=== PATIENT | female | born 1940 ===

== ENCOUNTER 2016-09-27 06:12 | Day surgery (SDC) | payer MEDICARE ==
[2016-09-21 09:28] VITALS: BMI 42.0
[2016-09-27] MEDS ORDERED: Lactated Ringer's 1,000 ML IV ONE ×2 (07:07→15:05)
[2016-09-27] MEDS ORDERED: Lidocaine 1% Inj (20ml) ONE (07:59)
[2016-09-27] MEDS ORDERED: Bacitracin 500 Units/gm Oint Foilpak UD ONE (08:00)
--- NOTE | 2016-09-27 10:06 | CP.SDSHP ---
Same Day Surgery H & P - History Proposed Procedure: R breast lumpectomy Pre-Op Diagnosis: R breast papillary carcinoma - Previous Medical/Surgical History Cardiac: Hypertension Previous Surgical History: Cholecystectomy, L knee replacement - Allergies Allergies: Allergies No Known Allergies Allergy (Unverified 09/27/16 06:25) - Physical Exam General Appearance: NAD Vital Signs: Vital Signs 09/27/16 09/27/16 09/27/16 06:50 08:03 09:10 Temperature 98.1 F 98.6 F Pulse Rate 71 80 76 Respiratory 20 18 18 Rate Blood Pressure 147/74 146/76 142/74 Mental Status: Alert & Oriented x3 Neuro: WNL Heart: WNL Lungs: WNL GI: WNL - {Optional Preform as Required} Breast: Other (needle loc, dressing C/D/I) Abdomen: WNL Integument: WNL ENT: WNL - Impression Impression: R breast papillary CA Pt. Evaluated Today:Candidate for Anesthesia & Procedure: Yes - Date & Time Date: 09/27/16 Time: 10:07 Short Stay Discharge - Short Stay Discharge Admitting Diagnosis/Reason for Visit: C50.919 Disposition: HOME/ ROUTINE Referrals: Nanette Ji MD [Primary Care Provider] - Follow-up: follow up with Dr. Morris in 1-2 weeks. Take pain med as needed. Ok to take shower in 2 days Take dressing off when taking shower. No heavy lifting for 1 month. Instructions: Excisional Breast Biopsy (DC)
[2016-09-27] MEDS ORDERED: Propofol 10 mg/ml Inj (20 ML) ONE (12:38)
[2016-09-27] MEDS ORDERED: Midazolam 2 MG/2 ML VIAL ONE (12:38)
[2016-09-27] MEDS ORDERED: Dexamethasone 4 mg/1 ml ONE (13:02)
[2016-09-27] MEDS ORDERED: Lactated Ringer's 1,000 ML IV SCH (13:13)
[2016-09-27] MEDS ORDERED: ePHEDrine 50 mg/ml Inj ONE (13:20)
[2016-09-27] MEDS ORDERED: Oxycodone/Acetaminophen 5/325 mg Tab PO PRN (13:43)
--- NOTE | 2016-09-27 13:49 | PCM.SURG1 ---
Surgeon's Initial Post Op Note - Surgeon's Notes Surgeon: Dr. Morris Plating Department Helper: Jose Love PGY2, Nohemi PGY3 Type of Anesthesia: General LMA Pre-Operative Diagnosis: R breast CA Operative Findings: R breast lump 3x3cm Post-Operative Diagnosis: R breast CA Operation Performed: R breast lumpectomy, with sentinal lymph node bx, drain insertion Specimen/Specimens Removed: R breast lump Estimated Blood Loss: EBL {In ML}: 20 Blood Products Given: N/A Drains Used: Harpreet Post-Op Condition: Good Date of Surgery/Procedure: 09/27/16 Time of Surgery/Procedure: 13:49
[2016-09-27 16:48] VITALS: BP 140/90; PULSE 96; RESP 20; TEMP 97; O2SAT 95
--- NOTE | 2016-09-28 13:41 | MAM ---
HISTORY: Patient is a 76-year-old female presenting for right breast needle localization preoperatively. There is history right breast cancer status post prior biopsy. TECHNIQUE/FINDINGS: Timeout was called for wire needle localization procedure for lesion in the right breast. The breast was placed in spot compression in medial-lateral projection with a grid in place and nodule lesion with biopsy clip was identified. Overlying skin was marked for procedure. Maximum sterile barrier vertex was provided at the skin in the plane of the lesion in question. 1 percent lidocaine was utilized for local anesthesia. A 5 cm wire was placed through the biopsy clip. A craniocaudal projection was obtained and demonstrated the needle localization wire to be in good position. The wire was properly secured at the skin using a sterile transparent barrier. Patient tolerated procedure well with no complications. Postoperative specimen radiograph demonstrates the lesion to be contained within the specimen with adequate margins. IMPRESSION: Status post ostial right breast the localization with lesion confirmation in specimen radiograph.
--- NOTE | 2016-09-30 08:58 | NM ---
PROCEDURE: RIGHT BREAST LYMPHOSCINTIGRAPHY HISTORY: Right breast mass COMPARISON: None TECHNIQUE: In the nuclear suite, appear related space of the right breast was prepared in the usual fashion with 0.6 mCi injected in total, but 4 divided doses surrounding the right breast areola and massaged following injection. Immediate and delayed 1 hour post injection imaging was performed. FINDINGS: Two small foci of hyper activity are identified in the superior right breast in both immediate static and delayed images. IMPRESSION: Status post right breast lymphocytic scintigraphy as discussed above.
--- NOTE | 2016-10-11 07:29 | OP ---
PROCEDURE DATE: 09/27/2016 PREOPERATIVE DIAGNOSIS: Infiltrating ductal carcinoma of the right breast. POSTOPERATIVE DIAGNOSIS: Infiltrating ductal carcinoma of the right breast. PROCEDURE: Right breast lumpectomy with sentinel node biopsy. SURGEON: Dr. Morris. PEDIATRIC ONCOLOGY NURSE: Dr. Luis Fernando Love, jose Song. TYPE OF ANESTHESIA: General LMA. DESCRIPTION OF PROCEDURE: After obtaining informed consent, the patient had been to needle localization. The patient was brought to the operating room. After a timeout was obtained, general LMA anesthesia was obtained, the right breast and axilla were prepped and draped in the usual manner. The axilla was mapped using the navigator for the hottest area. This was marked with a marker itself. At this point, visualizing the tip of the needle on the x-ray and calculating where the tip of the needle was, a transverse incision was made marking more left the tip of the needle in the middle. A subcutaneous flap was constructed superiorly, inferiorly approximately 2 cm all around. The incision was then deepened on both sides to excise the tissue with the whole needle and the tip of the needle. Once this was totally excised, hemostasis was obtained using hemocautery. The area was packed and the attention was carried out of the axilla. Again, an incision was made approximately 2 cm in the axilla and this was carried down through to the lymph bearing tissue. Once the hot spot was found with the navigator, the area was excised which showed a very hot node and once this node was removed, they sent out for pathological examination. The rest of the axilla was quiet. At this time, making sure the hemostasis was excellent, the axillary area was approximated with fine chromic. The breast tissue was approximated with fine chromic and then with aniya after placing a Harpreet drain. The patient tolerated the procedure very well and was transferred to the recovery room in good general status. Earnest Morris MD
== END 2016-09-27 16:49 | disposition home or self-care (01) ==
LOC: H.OPSURG 06:12
PROVIDERS: ATTEND Surgery
DX: C50.911 Malignant neoplasm of unspecified site of right female breast (principal); I10 Essential (primary) hypertension; Z85.3 Personal history of malignant neoplasm of breast; Z90.49 Acquired absence of other specified parts of digestive tract; Z96.652 Presence of left artificial knee joint; M19.90 Unspecified osteoarthritis, unspecified site; E78.5 Hyperlipidemia, unspecified; M54.5 Low back pain; Z17.0 Estrogen receptor positive status [ER+]
CPT/HCPCS: 19281; 19301; 38500; 78195; 88307; A9541; J0690; J1100; J2001; J2250; J2270; J2405; J2704; J2765; J3010; J7120